=== PATIENT | female | born 1965 | race Caucasian/White ===

== ENCOUNTER → 2016-10-07 | Outpatient (CLI) | payer OTHER ==
--- NOTE | 2016-10-08 03:29 | SP ---
DATE OF PROCEDURE: 10/07/2016 This is an outpatient EEG requested by Dr. Dewitt for a 51-year-old female with history of seizures , last episode in August, not on any medications currently. DESCRIPTION OF PROCEDURE: Routine EEG was recorded digitally. Cdbtn-[id number]-[id number] and qznno-nb-zbw aníbal ages were recorded and reviewed. Cap electrodes were placed in accordance with International 10-20 system of electrode placement. FINDINGS: Symmetrically distributed background activity of low to medium amplitude was seen in the awake state ranging in frequency between 10 to 12 cycles per second. Photic stimulation produces no rmal driving. Intermittently, several times throughout the recording, the patient had a few seconds lasting episodes of generalized spike and wave activity, frequency about 3 cycles per second. This activity was seen after hyperventilation and also before the hyperventilation. When patient gets d rowsy and falls asleep, background rhythm gets less organized, partially replaced by slower waves, 4 to 6 cycles per second. IMPRESSION: Abnormal study secondary to presence of intermittent short lasting generalized spike an d wave activity of 3 cycles per second which reflects presence of primary generalized epilepsy. Ple ase correlate clinically. Dictated By: ESTRELLA CLAY/TOSHA Conf#: [id number] DID#: [id number]
== END | disposition home or self-care (01) ==
LOC: EEG 09:43
PROVIDERS: ATTEND Psychiatry & Neurology Neurology
DX: G40.909 Epilepsy, unspecified, not intractable, without status epilepticus (principal)
CPT/HCPCS: 95819